=== PATIENT | female | born 1975 | race Caucasian/White ===

== ENCOUNTER 2021-12-06 19:04 | Emergency (ER) | payer SELFPAY ==
[~2021-12-06] VITALS: Ht 158 cm; Wt 134.8 kg
[2021-12-06 19:21] VITALS: BP 155/89
--- NOTE | 2021-12-06 19:26 | ED Lower Extremity ---
General Chief Complaint: Lower Extremity Stated Complaint: PAIN/BURNING IN FEET Source: patient Exam Limitations: no limitations (GABRIELLE BURGESS APRN) History of Present Illness Date Seen by Provider: Dec 06, 2021 Time Seen by Provider: 19:20 Initial Comments Patient reports that she has worsening burning in her feet. Has not taken anything at home for her symptoms. recently moved here and does not have a PCP established. Has taken Gabapentin in the past. Unsure if she had an allergic reaction to it or not. Reports that she was given several medications and that was one of them. Is willing to try it again. Has been taking over the counter medications at home with little improvement of symptoms. 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 Onset: other (chronic) Method of Injury: other (GABRIELLE BURGESS APRN) Allergies and Home Medications Allergies Coded Allergies: No Known Drug Allergies (Unverified , 12/06/21) Patient Home Medication List Home Medication List Reviewed: Yes (GABRIELLE BURGESS APRN) Gabapentin (Neurontin) 300 Mg Capsule, 300 MG PO TID PRN for PAIN-MODERATE (5-7) Prescribed by: Gabrielle Burgess on 12/06/211936 Prednisone (Prednisone) 20 Mg Tab, 60 MG PO DAILY Prescribed by: Gabrielle Burgess on 12/06/211936 Review of Systems Constitutional: No fever Respiratory: No cough, No short of breath Cardiovascular: No chest pain, No palpitations Gastrointestinal: No abdominal pain Genitourinary: No dysuria, No frequency Musculoskeletal: No back pain; other (burning to bilateral lower extremities) Skin: no symptoms reported Psychiatric/Neurological: Denies Numbness, Denies Paresthesia (GABRIELLE BURGESS APRN) All Other Systems Reviewed Negative Unless Noted: Yes (GABRIELLE BURGESS APRN) Past Sqgpctq-Piyiry-Lynjud Hx Family Medical History Reviewed Nursing Family Hx (GABRIELLE BURGESS APRN) Physical Exam Vital Signs Vital Signs - First Documented 12/06/21 19:21 Temp 37.0 Pulse 90 Resp 20 B/P (MAP) 155/89 (111) (CHUYITA LOVE DO) Vital Signs Capillary Refill : (GABRIELLE BURGESS APRN) Height, Weight, BMI Height: '" Weight: lbs. oz. kg; BMI Method: General Appearance: WD/WN Back: normal inspection Legs: bilateral leg non-tender, bilateral leg normal inspection, bilateral leg normal range of motion, bilateral leg no evidence of injury Neurologic/Psychiatric: alert, normal mood/affect, oriented x 3 Skin: normal color, warm/dry (GABRIELLE BURGESS APRN) Progress/Results/Core Measures Results/Orders Medications Given in ED Current Medications Medications Dose Ordered Sig/Lenore Route Start Time Stop Time Status Last Admin Dose Admin Ketorolac Tromethamine 60 mg ONCE ONCE IM 12/06/21 19:30 12/06/21 19:31 DC 12/06/21 19:41 60 MG Prednisone 60 mg ONCE ONCE PO 12/06/21 19:30 12/06/21 19:31 DC 12/06/21 19:41 60 MG (CHUYITA LOVE DO) Vital Signs/I&O 12/06/21 19:21 Temp 37.0 Pulse 90 Resp 20 B/P (MAP) 155/89 (111) (CHUYITA LOVE DO) Progress Progress Note : Progress Note She has tried Gabapentin in the past with other medications together and had an allergic reaction to something. Is not completely sure if it was the gabapentin that gave her the rash. She is willing to try this medication again. I explained to her that if she develops a rash she can take Benadryl. If she starts having throat tightness, shortness of breath or tongue swelling then she needs to return to the ER immediately. Instructed on the importance of establishing a PCP and following up. No red flag findings were appreciated on exam. (GABRIELLE BURGESS APRN) Departure Impression Primary Impression: Neuropathic pain of both legs Disposition: HOME, SELF-CARE Condition: Stable Departure-Patient Inst. Decision time for Depature: 19:33 (GABRIELLE BURGESS APRN) Referrals: NO,LOCAL PHYSICIAN (PCP/Family) Primary Care Physician Add. Discharge Instructions: 1. Home and rest. 2. Push fluids. 3. Alternate Tylenol/Ibuprofen as needed for pain. 4. Gabapentin as directed as needed. NO driving while taking this medication until you know how it affects you. 5. Follow up with PCP as needed. 6. Start Prednisone and take as directed until finished. Try and take this medication as early in the day as possible and with food to prevent stomach upset. 7. Return here if worse or concerns. All discharge instructions reviewed with patient and/or family. Voiced understanding. Scripts Gabapentin (Neurontin) 300 Mg Capsule 300 MG PO TID PRN for PAIN-MODERATE (5-7), #20 CAP Prov: GABRIELLE BURGESS APRN 12/06/21 Prednisone (Prednisone) 20 Mg Tab 60 MG PO DAILY for 5 Days, #15 TAB Prov: GABRIELLE BURGESS APRN 12/06/21 ATTENDING PHYSICIAN NOTE: I WAS PHYSICALLY PRESENT ER PHYSICAN, BUT I WAS NOT INVOLVED IN ANY DECISION MAKING OR ANY CARE OF THIS PATIENT, AND I AM NOT COLLABORATING PHYSICIAN. (CHUYITA LOVE DO) GABRIELLE BURGESS APRN Dec 06, 2021 19:26 CHUYITA LOVE DO Dec 07, 2021 03:36
[2021-12-06] MEDS ORDERED: KETOROLAC 60 MG/2 ML VIAL IM ONE (19:30)
[2021-12-06] MEDS ORDERED: predniSONE 20 MG TAB PO ONE (19:30)
[2021-12-06] MEDS ORDERED: PRD20T PO (19:37)
[2021-12-06] MEDS ORDERED: GABA300C PO (19:37)
== END 2021-12-06 20:13 | disposition home or self-care (01) ==
LOC: ER 19:08
DX: G57.93 Unspecified mononeuropathy of bilateral lower limbs (principal)
CPT/HCPCS: 99284

== ENCOUNTER 2022-01-06 17:32 | Emergency (ER) | payer SELFPAY ==
[~2022-01-06] VITALS: Ht 157 cm; Wt 140.1 kg
[~2022-01-06 17:32] MED LIST: GABA300C PO; PRD20T PO
--- NOTE | 2022-01-06 18:50 | ED Cough/URI ---
General Chief Complaint: Cough/Cold/Flu Symptoms Stated Complaint: COUGH,SORE THROAT,SOA,BOTH EARS HURT Nursing Triage Note: COUGH, SORE THORAT, CONGESTION, AND EAR ACHE X1 WEEK. HAS TAKEN X3 HOME COVID TESTS AND ALL HAVE BEEN NEG. Source: patient Exam Limitations: no limitations (ELOISA CHO APRN) History of Present Illness Date Seen by Provider: Jan 06, 2022 Time Seen by Provider: 17:42 Initial Comments This is a well-appearing 46-year-old female who presented to the ER with complaint of cough, sore throat, congestion, bilateral earache x1 week. Has taken 3 COVID tests at home and all are negative. Has history of bronchitis, feels same as previous episodes. Concerned she may be developing pneumonia. No fever, chest pain, nausea, vomiting, abdominal pain. (ELOISA CHO APRN) Allergies and Home Medications Allergies Coded Allergies: No Known Drug Allergies (Unverified , 12/06/21) Patient Home Medication List Home Medication List Reviewed: Yes (ELOISA CHO APRN) Benzonatate (Tessalon Perles) 100 Mg Capsule, 100 MG PO TID PRN for COUGH Prescribed by: ELOSIA CHO on 01/06/221921 Doxycycline Hyclate (Doxycycline Hyclate) 100 Mg Tablet, 100 MG PO BID Prescribed by: ELOISA CHO on 01/06/221915 Gabapentin (Neurontin) 300 Mg Capsule, 300 MG PO TID PRN for PAIN-MODERATE (5-7) Prescribed by: Gabrielle Velázquez on 12/06/211936 Prednisone (Prednisone) 20 Mg Tab, 60 MG PO DAILY Prescribed by: Gabrielle Velázquez on 12/06/211936 Prednisone (Prednisone) 20 Mg Tab, 40 MG PO DAILY Prescribed by: ELOISA CHO on 01/06/221915 Review of Systems Review of Systems Constitutional: see HPI (ELOISA CHO APRN) Past Cvldopw-Zzvzaa-Ckoegj Hx Patient Social History Smoking Status: Current Everyday Smoker Substance use?: No Alcohol Use?: No (ELOISA CHO APRN) Immunizations Up To Date Second COVID19 Vaccination Juan C: UNKNOWN COVID19 Vaccine [employer]ping [employer] Operator: LAZARA (ELOISA CHO APRN) Physical Exam Capillary Refill : Less Than 3 Seconds (ELOISA CHO APRN) Height: '" Weight: lbs. oz. kg; 56.00 BMI Method: General Appearance: WD/WN, no apparent distress Eyes: Bilateral Eye Normal Inspection, Bilateral Eye PERRL, Bilateral Eye EOMI HEENT: PERRL/EOMI, normal ENT inspection, pharynx normal Neck: full range of motion, normal inspection Respiratory: lungs clear, normal breath sounds, no respiratory distress, no accessory muscle use Cardiovascular: regular rate, rhythm, no murmur Gastrointestinal: normal bowel sounds, non tender, soft Neurologic/Psychiatric: no motor/sensory deficits, alert, normal mood/affect, oriented x 3 Skin: normal color, warm/dry (ELOISA CHO APRN) Progress/Results/Core Measures Suspected Sepsis SIRS Temperature: Pulse: 88 Respiratory Rate: 16 Blood Pressure 159 /79 Mean: 105 (ELOISA CHO APRN) Results/Orders Lab Results Laboratory Tests Test 01/06/22 18:14 01/06/22 18:53 Range/Units Influenza Type A (RT-PCR) Not Detected Not Detecte Influenza Type B (RT-PCR) Not Detected Not Detecte SARS-CoV-2 RNA (RT-PCR) Not Detected Not Detecte Group A Streptococcus Screen NEGATIVE NEGATIVE (CHUYITA LOVE DO) Micro Results Microbiology 01/06/22 Throat Culture - Final, Complete No Beta Strep isolated (CHUYITA LOVE DO) Vital Signs/I&O Capillary Refill : Less Than 3 Seconds (ELOISA CHO APRN) Blood Pressure Mean: 105 Progress Note : Progress Note COVID-negative, chest x-ray obtained to rule out pneumonia, negative for acute pathology. Vital signs are stable. We will go ahead and treat for bronchitis. To have follow-up with PCP. Discharge plan of care reviewed and she is agreeable with plan. (ELOISA CHO APRN) Diagnostic Imaging Diagonstic Imaging: Xray Plain Films/CT/US/NM/MRI: chest Comments [facility] [place], [place] NAME: [facility] REC#: [id number] PT STATUS: DEP ER : 1975 PHYSICIAN: ELOISA CHO APRN ADMIT DATE: 01/06/22/ER Signed Date of Exam:01/06/22 CHEST PA/LAT (2 VIEW) EXAMINATION: Chest 2 view. HISTORY: Cough. COMPARISON: None available. FINDINGS: The lungs are clear without edema or pneumonia. No pleural effusion or pneumothorax. Heart size is normal. IMPRESSION: Clear lungs. Dictated by: Dictated on workstation # [id number] Dict: 01/06/221904 Trans: 01/06/222110 [facility] [phone] Interpreted by: SHIVA ANAYA MD Electronically signed by: SHIVA ANAYA MD 01/06/222110 (ELOISA CHO E COMMERCE MARKETING ANALYST) Departure Impression Primary Impression: Bronchitis Disposition: HOME, SELF-CARE Condition: Stable Departure-Patient Inst. Decision time for Depature: 19:13 (ELOISA CHO APRN) Referrals: NO,LOCAL PHYSICIAN (PCP/Family) Primary Care Physician Patient Instructions: Bronchitis, Adult ED Add. Discharge Instructions: Plan: 1. Take Prednisone daily with food as directed. 2. Take all of your antibiotics as directed and complete full course even if you begin to feel better. 3. Use your Albuterol 2 puffs every 4 hours as needed for shortness of air. 4. Follow up with your doctor for any persistent symptoms. 5. Return for any new, concerning, or worsening symptoms. All discharge instructions reviewed with patient and/or family. Voiced understanding. Scripts Benzonatate (TESSALON PERLES) 100 Mg Capsule 100 MG PO TID PRN for COUGH, #20 CAP 0 Refills Prov: ELOISA CHO APRN 01/06/22 Doxycycline Hyclate (Doxycycline Hyclate) 100 Mg Tablet 100 MG PO BID for 7 Days, #14 TAB 0 Refills Prov: ELOISA CHO APRN 01/06/22 Prednisone (Prednisone) 20 Mg Tab 40 MG PO DAILY for 5 Days, #10 TAB 0 Refills Prov: ELOISA CHO APRN 01/06/22 ATTENDING PHYSICIAN NOTE: I WAS PHYSICALLY PRESENT ER PHYSICIAN, BUT I WAS NOT INVOLVED IN ANY DECISION MAKING OR ANY CARE OF THIS PATIENT, AND I AM NOT COLLABORATING PHYSICIAN. (CHUYITA LOVE DO) ELOISA CHO APRN Jan 06, 2022 18:50 CHUYITA LOVE DO Jan 24, 2022 11:11
[2022-01-06] MEDS ORDERED: BENZONATATE 100 MG (TESSALON) CAPSULE PO ONE (19:00)
--- NOTE | 2022-01-06 19:06 | Diagnostic Imaging Report ---
EXAMINATION: Chest 2 view. HISTORY: Cough. COMPARISON: None available. FINDINGS: The lungs are clear without edema or pneumonia. No pleural effusion or pneumothorax. Heart size is normal. IMPRESSION: Clear lungs. Dictated by: Dictated on workstation # [id number]
[2022-01-06] MEDS ORDERED: DOXY100T2 PO (19:16)
[2022-01-06] MEDS ORDERED: PRD20T PO (19:16)
[2022-01-06] MEDS ORDERED: BENZ100C18 PO (19:22)
[2022-01-06 19:28] VITALS: BP 159/79
[2022-01-06] MEDS ORDERED: predniSONE 20 MG TAB PO ONE (19:30)
== END 2022-01-06 19:28 | disposition home or self-care (01) ==
LOC: EDUNIT# 17:32 → ER 17:35
DX: J40 Bronchitis, not specified as acute or chronic (principal); F17.200 Nicotine dependence, unspecified, uncomplicated; Z20.822 Contact with and (suspected) exposure to COVID-19
CPT/HCPCS: 71046; 87430; 87636